=== PATIENT | female | born 1995 | race Caucasian/White ===

== ENCOUNTER 2025-09-22 16:08 | Emergency (ER) | payer OTHER ==
[2025-09-22 18:11] LABS: #Basophils 0.08 10x3/uL (0.0-0.2); #Eosinophils 0.42 10x3/uL (0.0-0.7); #Monocytes 0.75 10x3/uL (0.11-0.59); #Neutrophils 8.90 10x3/uL (1.40-6.50); %Basophils 0.6 % (0.0-1.0); %Eosinophils 3.4 % (0.0-10.0); %Lymphocytes 18.0 % (21.0-51.0); %Monocytes 6.0 % (0.0-10.0); %Neutrophils 71.7 % (42.0-75.0); Hematocrit 39.3 % (36.0-47.0); Hemoglobin 13.3 g/dL (12.0-16.0); Mean Corpuscular Hemoglobin 30.5 pg (27.0-31.0); Mean Corpuscular Volume 90.1 fL (78.0-98.0); Platelet Count 266 10x3/uL (130-400); Red Blood Cell (RBC) Count 4.36 mill/uL (4.20-5.40); White Blood Cell (WBC) Count 12.42 10x3/uL (4.8-10.8)
[2025-09-22 18:33] LABS: ALT (SGPT) 51 U/L (Less than 34); AST (SGOT) 77 U/L (11-34); Albumin 4.7 g/dL (3.1-4.5); Alkaline Phosphatase 84 U/L (40-110); Anion Gap 14 mmol/L (10-20); BUN (Urea Nitrogen) 14 mg/dL (7.0-18.7); Bilirubin, Total 1.3 mg/dL (0.3-1.2); Calc. Creatinine Clearance 0 mL/min (70-130); Calcium 9.4 mg/dL (7.8-10.44); Carbon Dioxide 25 mmol/L (22-29); Chloride 107 mmol/L (98-107); Globulin 2.6 g/dL (2.4-3.5); Glucose 85 mg/dL (70-105); Lipase 35 U/L (8-78); Magnesium 2.0 mg/dL (1.6-2.6); Potassium 3.8 mmol/L (3.5-5.1); Sodium 142 mmol/L (136-145)
[2025-09-22 20:10] LABS: BHCG - Serum Negative (NEGATIVE); Pregs Control Background? CLEAR/WHITE (CLR/WHITE); Pregs Control Bar Appear? YES (CONTROL BAR)
== END 2025-09-22 19:49 | disposition home or self-care (01) ==
LOC: ERS 16:08
DX: E86.0 Dehydration (principal); Z55.6 Problems related to health literacy
CPT/HCPCS: 71046; 80053; 83690; 83735; 84484; 84703; 85025; 85379; 93005; 96374